=== PATIENT | male | born 1980 | race Caucasian/White ===

== ENCOUNTER 2018-03-03 11:09 | Emergency (ER) | payer MEDICARE, MEDICAID, SELFPAY ==
[2018-03-03 11:14] VITALS: BP 147/88; PULSE 98; RESP 16; TEMP 36; O2SAT 97
--- NOTE | 2018-03-03 11:15 | ED.GENADUL ---
Disposition Clinical Impression: Cellulitis of both feet Disposition: HOME Condition: Good Instructions: Cellulitis (ED) Additional Instructions: Soap and water cleanse of the feet once to twice daily, pat and then it air dry. Once dry wear shoes with cotton socks. Return to the development of fever, spreading redness, or any other acute concerns. No wearing of sandals for 5-7 days time until healed. Continue your regular medications Prescriptions: Cephalexin [Keflex] 500 mg PO TID #15 cap Medical Decision Making - Medical Decision Making 29-year-old male with beginnings of cellulitis on the bilateral feet primarily caused by rubbing of the strap sandals. We have contacted his case packer and sealer to assist in new footwear including socks and sneakers. I will place him on 5 days of oral Keflex to ensure resolution. He is stable for outpatient management History of Present Illness - General Chief complaint: Cellulitis Stated complaint: INFECTION Time Seen by Provider: 03/03/18 11:15 Source: patient, RN notes reviewed Mode of arrival: ambulatory Limitations: no limitations - History of Present Illness Initial comments: Bilateral foot pain: 29-year-old male who presents from home with 2 days of the gradual onset of mild, dull, achy discomfort in his feet underneath the straps of his flip-flop sandals. Today with erythema that extended to the arch of the left foot and is present bilaterally at the proximal great toes. No fever or chills. He has had no systemic illness. He recently moved in with his girlfriend. He continues to see his case packer and sealer. - Related Data BusPIRone [Buspar] 15 mg PO BID 09/24/16 Melatonin 3 mg PO HS 09/24/16 Methylphenidate [Ritalin] 20 mg PO DAILY 09/24/16 Risperidone [Risperdal] 3 mg PO BID 09/24/16 Citalopram [CeleXA] 10 mg PO DAILY 02/09/18 Oxcarbazepine [Trileptal] 900 mcg PO BID 02/09/18 Diclofenac Sodium [Voltaren 0.1% ophth tennille] 1 ml OP BID #1 btl 02/23/18 Promethazine [Phenergan] 12.5 mg PO Q6H PRN PRN #4 tab 02/24/18 Cephalexin [Keflex] 500 mg PO TID #15 cap 03/03/18 Allergies Allergy/AdvReac Type Severity Reaction Status Date / Time carbamazepine [From Tegretol] Allergy Unverified 02/24/18 14:56 guanfacine [From Tenex] Allergy Unverified 02/24/18 14:56 lithium Allergy Unverified 02/24/18 14:56 Review of Systems Other: 6 systems reviewed, otherwise negative Past Medical History - Past Medical History Medical history: hyperlipidemia, seizures, asthma, COPD Obstructive sleep apnea Surgical history: non-contributory - Social History Alcohol use: none Drug use: none General Exam - General Limitations: no limitations General appearance: alert, in no apparent distress - Head Head exam: Present: atraumatic, normocephalic - Eye Eye exam: Present: PERRL, EOMI - Extremities Exam Extremities exam: Present: normal capillary refill, other (Bilateral feet with erythema of the proximal great toe and on the left to the dorsum of the foot. Tender to palpation. No fluctuance. 2+ DP bilaterally. No stiff edema. No abnormal findings of the proximal leg) - Neurological Exam Neurological exam: Present: alert, oriented X3 - Psychiatric Psychiatric exam: Present: normal affect, normal mood - Skin Skin exam: Present: warm, dry, intact
--- NOTE | 2018-03-03 11:27 | NUR.NOTE ---
Nursing Note: spoke to his briefcase sewer and they will find him a pair of shoes and socks. will bring them to him tonight.
== END 2018-03-03 11:29 | disposition home or self-care (01) ==
PROVIDERS: Emergency Provider Emergency Medicine; PCP Internal Medicine
DX: L03.115 Cellulitis of right lower limb (principal); L03.116 Cellulitis of left lower limb; J44.9 Chronic obstructive pulmonary disease, unspecified
CPT/HCPCS: 99283 ×2

== ENCOUNTER 2018-03-14 19:31 | Emergency (ER) | payer MEDICARE, MEDICAID, SELFPAY ==
[2018-03-14 19:35] VITALS: BP 128/83; PULSE 100; RESP 20; TEMP 37; O2SAT 98
--- NOTE | 2018-03-14 19:59 | DI.RPTCT_ITS ---
SYMPTOM/DIAGNOSIS: SEIZURE, H/O ? FALL NONCONTRAST HEAD CT: No intracranial hemorrhage, mass or infarct is seen. The ventricles are normal in size. There has been no change from the previous exam. There is ethmoid sinus disease. IMPRESSION: No acute abnormality
--- NOTE | 2018-03-14 19:59 | ED.GENADUL ---
Disposition Clinical Impression: Breakthrough seizure Disposition: HOME Condition: Good Instructions: Recurrent Seizures in Adults (ED) Additional Instructions: Continue all regular medications. Home to rest this evening. Return to the emergency department for any acute concerns. Medical Decision Making - Lab Data Laboratory Results - last 24 hr 03/14/18 03/14/18 20:08 20:08 WBC 8.05 RBC 4.87 Hgb 14.8 Hct 42.3 MCV 86.9 MCH 30.4 MCHC 35.0 RDW 13.3 Plt Count 234 MPV 11.0 Immature Gran % 0.4 Neutrophils % 66.8 Lymphocytes % 22.4 Monocytes % 5.7 Eosinophils % 4.2 Basophils % 0.5 Absolute Neutrophils 5.38 Absolute Lymphocytes 1.80 Absolute Monocytes 0.46 Absolute Eosinophils 0.34 Absolute Basophils 0.04 Sodium 138 Potassium 3.8 Chloride 101 Carbon Dioxide 29.9 Anion Gap 7.1 BUN 11 Creatinine 0.95 Estimated GFR/1.73 m2 >= 60.00 Glucose 99 Calcium 8.7 Total Bilirubin 0.2 AST 14 L ALT 19 Alkaline Phosphatase 125 H Total Protein 7.0 Albumin 4.0 Results reviewed for labs ordered during visit: Yes - Radiology Data Radiology results: report reviewed, image reviewed - Medical Decision Making 29-year-old male presents from his home with computer game designer after waking up on the floor, question whether he had a seizure and struck his head. He has a mild posterior headache but is otherwise well. His neurologic exam is unremarkable. His vital signs are stable. Offered analgesia which he declined. Given fluids by mouth. Given question of traumatic injury as well as possible seizure, differential diagnosis includes skull fracture, intracranial bleeding, breakthrough seizure. Do not feel that he exhibits signs or symptoms of meningitis or stroke. Patient referred for CT scan of the head and laboratory testing. Laboratories reviewed and unremarkable. Patient remains without complaint. CT images: No acute intracranial findings. See formal report. He stable and improved, appropriate discharged home. He will follow-up with computer game designer. History of Present Illness - General Chief complaint: Seizure Stated complaint: SEIZURE? Time Seen by Provider: 03/14/18 19:48 Source: patient, RN notes reviewed Mode of arrival: ambulatory Limitations: no limitations - History of Present Illness Initial comments: 29-year-old male presents with computer game designer. He has a history of seizure. He states that he woke up on the floor was new apartment where he has been residing for 2 days. He now has a dull, achy, posterior headache that he questions came from a fall or seizure at home per does not of neck pain, motor weakness of the upper extremity, numbness or tingling. He has otherwise been well. Has not had recent fever or chills. He states that the posterior headache came on gradually, has somewhat improved, is not associated with changes to vision, focal weakness, vomiting. - Related Data Melatonin 3 mg PO HS 09/24/16 Methylphenidate [Ritalin] 20 mg PO DAILY 09/24/16 Risperidone [Risperdal] 3 mg PO BID 09/24/16 Citalopram [CeleXA] 10 mg PO DAILY 02/09/18 Oxcarbazepine [Trileptal] 900 mcg PO BID 02/09/18 BusPIRone [Buspar] 15 mg PO BID 03/14/18 Allergies Allergy/AdvReac Type Severity Reaction Status Date / Time carbamazepine [From Tegretol] Allergy Unverified 03/14/18 19:38 guanfacine [From Tenex] Allergy Unverified 03/14/18 19:38 lithium Allergy Unverified 03/14/18 19:38 Review of Systems Other: 8 systems reviewed, otherwise negative Past Medical History - Past Medical History Medical history: hyperlipidemia, seizures, asthma, COPD Obstructive sleep apnea Surgical history: non-contributory - Social History Alcohol use: none Drug use: none General Exam - General Limitations: no limitations General appearance: alert, in no apparent distress - Head Head exam: Present: atraumatic, normocephalic - Eye Eye exam: Present: PERRL, EOMI - ENT ENT exam: Present: normal exam, normal external ear exam - Neck Neck exam: Present: normal inspection, full ROM. Absent: tenderness - Respiratory Respiratory exam: Present: normal lung sounds bilaterally. Absent: respiratory distress - Cardiovascular Cardiovascular Exam: Present: regular rate, normal rhythm, other (Pulse approximately 80-90 at rest) - GI/Abdominal GI/Abdominal exam: Present: soft. Absent: distended, tenderness - Extremities Exam Extremities exam: Present: normal inspection, full ROM - Neurological Exam Neurological exam: Present: alert, oriented X3, CN II-XII intact, normal gait, other. Absent: motor sensory deficit - Psychiatric Psychiatric exam: Present: normal affect, normal mood - Skin Skin exam: Present: warm, dry, intact Course Vital Signs - 24 hr 03/14/18 19:35 Temperature 37 C Pulse 100 H Respiratory 20 Rate Blood Pressure 128/83 Pulse Oximetry 98
--- NOTE | 2018-03-14 20:02 | ED.GENADUL_ITS ---
Disposition Clinical Impression: Breakthrough seizure Disposition: HOME Condition: Good Instructions: Recurrent Seizures in Adults (ED) Additional Instructions: Continue all regular medications. Home to rest this evening. Return to the emergency department for any acute concerns. Medical Decision Making - Lab Data Laboratory Results - last 24 hr 03/14/18 03/14/18 20:08 20:08 WBC 8.05 RBC 4.87 Hgb 14.8 Hct 42.3 MCV 86.9 MCH 30.4 MCHC 35.0 RDW 13.3 Plt Count 234 MPV 11.0 Immature Gran % 0.4 Neutrophils % 66.8 Lymphocytes % 22.4 Monocytes % 5.7 Eosinophils % 4.2 Basophils % 0.5 Absolute Neutrophils 5.38 Absolute Lymphocytes 1.80 Absolute Monocytes 0.46 Absolute Eosinophils 0.34 Absolute Basophils 0.04 Sodium 138 Potassium 3.8 Chloride 101 Carbon Dioxide 29.9 Anion Gap 7.1 BUN 11 Creatinine 0.95 Estimated GFR/1.73 m2 >= 60.00 Glucose 99 Calcium 8.7 Total Bilirubin 0.2 AST 14 L ALT 19 Alkaline Phosphatase 125 H Total Protein 7.0 Albumin 4.0 Results reviewed for labs ordered during visit: Yes - Radiology Data Radiology results: report reviewed, image reviewed - Medical Decision Making 29-year-old male presents from his home with loss prevention supervisor after waking up on the floor, question whether he had a seizure and struck his head. He has a mild posterior headache but is otherwise well. His neurologic exam is unremarkable. His vital signs are stable. Offered analgesia which he declined. Given fluids by mouth. Given question of traumatic injury as well as possible seizure , differential diagnosis includes skull fracture, intracranial bleeding, breakthrough seizure. Do not feel that he exhibits signs or symptoms of meningitis or stroke. Patient referred for CT scan of the head and laboratory testing. Laboratories reviewed and unremarkable. Patient remains without complaint. CT images: No acute intracranial findings. See formal report. He stable and improved, appropriate discharged home. He will follow-up with loss prevention supervisor. History of Present Illness - General Chief complaint: Seizure Stated complaint: SEIZURE? Time Seen by Provider: 03/14/18 19:48 Source: patient, RN notes reviewed Mode of arrival: ambulatory Limitations: no limitations - History of Present Illness Initial comments: 29-year-old male presents with loss prevention supervisor. He has a history of seizure. He states that he woke up on the floor was new apartment where he has been residing for 2 days. He now has a dull, achy, posterior headache that he questions came from a fall or seizure at home per does not of neck pain, motor weakness of the upper extremity, numbness or tingling. He has otherwise been well. Has not had recent fever or chills. He states that the posterior headache came on gradually, has somewhat improved, is not associated with changes to vision, focal weakness, vomiting. - Related Data Melatonin 3 mg PO HS 09/24/16 Methylphenidate [Ritalin] 20 mg PO DAILY 09/24/16 Risperidone [Risperdal] 3 mg PO BID 09/24/16 Citalopram [CeleXA] 10 mg PO DAILY 02/09/18 Oxcarbazepine [Trileptal] 900 mcg PO BID 02/09/18 BusPIRone [Buspar] 15 mg PO BID 03/14/18 Allergies Allergy/AdvReac Type Severity Reaction Status Date / Time carbamazepine [From Tegretol] Allergy Unverified 03/14/18 19:38 guanfacine [From Tenex] Allergy Unverified 03/14/18 19:38 lithium Allergy Unverified 03/14/18 19:38 Review of Systems Other: 8 systems reviewed, otherwise negative Past Medical History - Past Medical History Medical history: hyperlipidemia, seizures, asthma, COPD Obstructive sleep apnea Surgical history: non-contributory - Social History Alcohol use: none Drug use: none General Exam - General Limitations: no limitations General appearance: alert, in no apparent distress - Head Head exam: Present: atraumatic, normocephalic - Eye Eye exam: Present: PERRL, EOMI - ENT ENT exam: Present: normal exam, normal external ear exam - Neck Neck exam: Present: normal inspection, full ROM. Absent: tenderness - Respiratory Respiratory exam: Present: normal lung sounds bilaterally. Absent: respiratory distress - Cardiovascular Cardiovascular Exam: Present: regular rate, normal rhythm, other (Pulse approximately 80-90 at rest) - GI/Abdominal GI/Abdominal exam: Present: soft. Absent: distended, tenderness - Extremities Exam Extremities exam: Present: normal inspection, full ROM - Neurological Exam Neurological exam: Present: alert, oriented X3, CN II-XII intact, normal gait, other. Absent: motor sensory deficit - Psychiatric Psychiatric exam: Present: normal affect, normal mood - Skin Skin exam: Present: warm, dry, intact Course Vital Signs - 24 hr 03/14/18 19:35 Temperature 37 C Pulse 100 H Respiratory 20 Rate Blood Pressure 128/83 Pulse Oximetry 98
[2018-03-14 20:19] LABS: Abs Immature Grans 0.03 k/cumm (0.0-0.09); Absolute Basophil Count 0.04 k/cumm (0.0-0.2); Absolute Eosinophil Count 0.34 k/cumm (0.0-0.7); Absolute Monocyte Count 0.46 k/cumm (0.11-0.7); Absolute Neutrophil Count 5.38 k/cumm (1.2-6.7); Basophils % 0.5; Eosinophils % 4.2; HCT 42.3 % (40.0-50.0); HGB 14.8 g/dL (13.5-17.5); Immature Grans % 0.4; Lymphocytes % 22.4; Mean Corpuscular Hemoglobin 30.4 pg (27.0-33.0); Mean Corpuscular Volume 86.9 fL (80-95); Monocytes % 5.7; Neutrophils % 66.8; Platelet Count 234 x1000/uL (130-400); RBC 4.87 m/cumm (4.50-6.00); RBC Distribution Width 13.3 % (11.8-14.1); White Blood Cell Count 8.05 k/cumm (4.4-10.8)
[2018-03-14 20:33] LABS: ALT 19 U/L (12-78); AST 14 U/L (15-37); Alkaline Phosphatase 125 U/L (46-116); Anion Gap 7.1 mmol/L (3-11); BUN 11 mg/dL (7-18); Bilirubin, Total 0.2 mg/dL (0.2-1.0); CO2 29.9 mmol/L (21.0-32.0); CREATININE 0.95 mg/dL (0.70-1.30); Calcium 8.7 mg/dL (8.5-10.1); Chloride 101 mmol/L (98-107); Glucose 99 mg/dL (70-100); Potassium 3.8 mmol/L (3.5-5.1); Sodium 138 mmol/L (136-145)
--- NOTE | 2018-03-14 21:14 | DI.VRAD_ITS ---
EXAM: CT Head Without Intravenous Contrast CLINICAL HISTORY: 37 years old, male; Signs and symptoms; Other: Seizure; Patient HX: Seizure, HX of; Additional info: ? Fall TECHNIQUE: Axial computed tomography images of the head/brain without intravenous contrast. Coronal and sagittal reformatted images were created and reviewed. COMPARISON: CT - HEAD AND CSPINE W/O CONTRAST 2017-12-20 19:23 FINDINGS: Brain: No focal pathology. No hemorrhage. No significant white matter disease. No edema. Ventricles: No focal pathology. No ventriculomegaly. Bones/joints: No focal pathology. No acute fracture. Soft tissues: Unremarkable. Sinuses: Ethmoid and right frontal sinus disease. Mastoid air cells: Unremarkable as visualized. No mastoid effusion. Orbits: Coarse calcification or other band like material associated with the posterior aspect of the left globe is partially seen, could be posttraumatic or postsurgical. IMPRESSION: 1. No acute intracranial findings. 2. Ethmoid and right frontal sinus disease. Dictated and Authenticated by: Emili Juarez MD. Ordering:RACHEL TOHMPSON MD
[2018-03-15 00:50] VITALS: BP 128/83; PULSE 100; RESP 20; TEMP 37; O2SAT 98
--- NOTE | 2018-03-16 12:33 | NUR.NOTE ---
Nursing Note: Patient called asking if he could play soccer tonight. Spoke with MARTHA Barnes who stated that we do not clear patient's to play sports in the ED. The patient would need to follow up with his primary physician. Patient was told this and agreed. Milana Parker.
== END 2018-03-14 21:20 | disposition home or self-care (01) ==
PROVIDERS: Emergency Provider Emergency Medicine; PCP Internal Medicine
DX: G40.909 Epilepsy, unspecified, not intractable, without status epilepticus (principal); J44.9 Chronic obstructive pulmonary disease, unspecified
CPT/HCPCS: 70450; 99284 ×2; 36415; 80053; 85025

== ENCOUNTER 2018-08-14 20:06 | Emergency (ER) | payer MEDICARE, MEDICAID, SELFPAY ==
[2018-08-14 20:16] VITALS: BP 129/72; PULSE 82; RESP 16; TEMP 37; O2SAT 94
--- NOTE | 2018-08-14 21:32 | DI.CT_ITS ---
SYMPTOM/DIAGNOSIS: BACK PAIN, ABSENT SENSATION TO LT FOOT LUMBAR SPINE CT; Multiple contiguous axial images of the lumbar spine were obtained. Sagittal and coronal reformatted images were evaluated on the Siemens work station. There is normal alignment of the lumbar spine. No acute fractures or subluxations are seen. At L 5-S 1, there is a broad based disc bulge slightly eccentric to the left. No significant central spinal canal stenosis is seen. There are degenerative changes of the facet joints and mild narrowing of the left neural foramen is noted. At L 4-5, there is a diffuse disc bulge. No significant central spinal canal or neural foraminal stenosis is present. The remaining disc levels show no focal disc herniation, central spinal canal or neural foraminal stenosis. IMPRESSION: 1. No acute fracture or subluxation in the lumbar spine. 2. Broad based disc bulge at L 5-S 1, slightly more pronounced on the left. MRI should be considered for further evaluation. 3. Disc herniation at L 4-5. PELVIC CT: CT scan of the pelvis was performed without intravenous contrast material. Sagittal and coronal reformatted images were evaluated on the Siemens work station. The bowel shows no acute abnormality. The urinary bladder and reproductive organs are unremarkable. No pelvic adenopathy, ascites or pneumoperitoneum is present. The bones are intact and normally mineralized. No acute fracture, dislocation, lytic or sclerotic lesion is seen. The soft tissues are unremarkable. IMPRESSION: Negative CT scan of the pelvis.
[2018-08-14] MEDS: Acetaminophen 500 MG TAB 1000 MG PO (21:39)
[2018-08-14] MEDS: Lidocaine 5% Patch 1 PATCH TP (21:39)
--- NOTE | 2018-08-14 21:48 | NUR.NOTE ---
patient refused motrin Nursing Note:
--- NOTE | 2018-08-14 22:32 | DI.VRAD_ITS ---
EXAM: CT Pelvis Without Contrast, Skeletal EXAM DATE/TIME: 08/14/2018 9:35 PM CLINICAL HISTORY: 37 years old, male; Pain; Other: Back pain TECHNIQUE: Axial computed tomography images of the pelvis without intravenous contrast. Exam focused on the skeletal structures. All CT scans at this facility use at least one of these dose optimization techniques: automated exposure control; mA and/or kV adjustment per patient size (includes targeted exams where dose is matched to clinical indication); or iterative reconstruction. Coronal and sagittal reformatted images were created and reviewed. COMPARISON: CR LUMBAR SPINE COMPLETE 08/23/2017 4:59 PM FINDINGS: Bones/joints: There is no evidence of acute fracture. There is no evidence of malalignment or dislocation. Lumbar spine-refer to the CT report Soft tissues: Unremarkable. IMPRESSION: There is no evidence of acute fracture. Dictated and Authenticated by: Deidre Da Silva MD. Ordering:JONA Puente MD
--- NOTE | 2018-08-14 22:38 | DI.VRAD_ITS ---
EXAM: CT Lumbar Spine Without Contrast EXAM DATE/TIME: 08/14/2018 9:35 PM CLINICAL HISTORY: 37 years old, male; Pain; Low back pain TECHNIQUE: Axial computed tomography images of the lumbar spine without intravenous contrast. All CT scans at this facility use at least one of these dose optimization techniques: automated exposure control; mA and/or kV adjustment per patient size (includes targeted exams where dose is matched to clinical indication); or iterative reconstruction. COMPARISON: CR LUMBAR SPINE COMPLETE 08/23/2017 4:59 PM FINDINGS: Vertebrae: No acute fracture. Normal alignment. Discs/Spinal canal/Neural foramina: Broad-based disc bulge at L5/S1 is more pronounced on the left (3:77). Central disc herniation and to the left at L4/L5 (3:64). Soft tissues: Unremarkable. IMPRESSION: 1. Broad-based disc bulge at L5/S1 is more pronounced on the left (3:77). Recommend MRI for further evaluation 2. Central disc herniation and to the left at L4/L5 (3:64). Recommend MRI for further evaluation Dictated and Authenticated by: Deidre Da Silva MD. Ordering:JONA Puente MD
--- NOTE | 2018-08-14 23:15 | ED.GENADUL_ITS ---
Discharge Plan Disposition Patient Disposition: HOME Condition: Good Discharge Details Chief Complaint: Nk/Back Pain Clinical Impression: Radiculopathy Primary Care Provider: Oscar Simon ED Provider: Kwame Tran Home Meds and New Rx's Prescriptions: New prednisone 50 MG tablet 50 mg PO DAILY Qty: 5 RF: 0 lidocaine [Lidoderm] 1 PATCH patch 1 patch Topical Q24H Qty: 4 RF: 0 No Action methylphenidate HCl [Ritalin] 20 MG tablet 20 mg PO DAILY RF: 0 melatonin 3 MG tablet 3 mg PO HS RF: 0 risperidone [Risperdal] 3 MG tablet 3 mg PO BID RF: 0 oxcarbazepine [Trileptal] 600 MG tablet 900 mcg PO BID RF: 0 citalopram 10 MG tablet 20 mg PO DAILY RF: 0 buspirone 15 MG tablet 15 mg PO BID RF: 0 Discharge Instructions Instructions: Lumbar Radiculopathy (ED) Additional Instructions: Please follow-up with the [facility] spine center. You will be contacted for your referral appointment time. He will also be contacted for scheduling of your MRI. Please do not miss this appointment. Do not lift anything greater than 5 pounds for the next 2-3 weeks. If you notice any worsening of your symptoms, or any new symptoms such as numbness or tingling in your groin, bowel or bladder incontinence, weakness in your legs, vomiting, diarrhea, fever, chills, shortness of breath, chest pain, numbness, weakness, or fainting , please return immediately to the emergency department for reevaluation. Please follow up with your primary care provider as soon as possible for reassessment and reevaluation. As always, it was a pleasure participating in your medical care today. Referrals: Oscar Simon MD [Primary Care Provider] - Discharge Data Discharge Date/Time-TO BE ENTERED AT DEPARTURE: 08/14/18 23:27 Medical Decision Making This is a 37-year-old male who is developmentally delayed who presents today with complaint of left lower back pain for the last 2 days. It began 2 days ago without any trauma or significant heavy lifting. He has a known history of bulging disks L4-L5 and S1. Physical exam demonstrates no concerning red flags of cauda equina syndrome and a exam clinically inconsistent with this. He has no saddle anesthesia no decrease in reflexes, no decrease in strength. No bowel or bladder incontinence. Bladder scan shows 0 mL's in his post void bladder scan as well as excellent rectal tone and good perirectal sensation. The patient does have some decrease in sensation on the medial anterior and posterior aspect of his leg distal to the knee and on the foot, however he does demonstrate excellent dorsiflexion of the great toe, good plantar and d orsiflexion of the foot, good Achilles reflex and good patellar reflex. CT scan was ordered and shows broad-based disc bulge at L5-S1 that is more pronounced on the left, as well as a central disc herniation and to the left for L4 and L5. No other acute process or fracture. With a clinical exam inconsistent with cauda equina syndrome or central cord compression syndrome, and imaging and physical exam consistent with radiculopathy secondary to his disc bulge, I do feel that he can be safely discharged home. I had a long discussion with the patient and his guardian regarding red flags which to return as well as signs and symptoms concerning for cauda equina syndrome. We will set up for an outpatient MRI, set up referral to the [facility] spine center, and start the patient on steroids and Lidoderm patch. I have extensively reviewed the treatment plan and discharge instructions with the patient and their family. I have addressed all patient concerns at this time. The patient and family was made aware of what symptoms to monitor for that would warrant a return to the emergency department. Discussed the plan with the patient and family, they demonstrate verbal understanding and agreement with our assessment and plan at this time. FINDINGS: Bones/joints: There is no evidence of acute fracture. There is no evidence of malalignment or dislocation. Lumbar spine-refer to the CT report Soft tissues: Unremarkable. IMPRESSION: There is no evidence of acute fracture. Dictated and Authenticated by: Deidre Da Silva MD. IMPRESSION: 1. Broad-based disc bulge at L5/S1 is more pronounced on the left (3:77). Recommend MRI for further evaluation 2. Central disc herniation and to the left at L4/L5 (3:64). Recommend MRI for further evaluation Dictated and Authenticated by: Deidre Da Silva MD. HPI General Date/Time Provider Initiated Documentation: 08/14/18 21:20 . HPI Narrative: This is a pleasant 37-year-old male with a past medical history of COPD, seizures, traumatic brain injury, PTSD, factitious disorder, somatization disorder, and retinal detachment in his left eye, and known radiculopathy in his lumbar spine. He presents today for eval of left-sided back pain. Patient states that 2 days ago he began having left-sided back pain, as well as tingling in his left leg and toes. He denies lifting any heavy objects, but does admit to shoveling notable snow over the last few days. He denies any bowel or bladder incontinence, he denies any saddle anesthesia. He denies any fall, trauma, fever, chills, or IV drug use. He has no other complaints at this time. Pain is made worse with movement, and sitting upright. Improved by nothing. He denies any recent surgeries, or pertinent family history. The patient does have developmental delay and he is here with his radiologic tech. Related Data Home Medications Medication Instructions Recorded Confirmed melatonin 3 mg PO HS 09/24/16 08/14/18 methylphenidate HCl [Ritalin] 20 mg PO DAILY 09/24/16 08/14/18 risperidone [Risperdal] 3 mg PO BID 09/24/16 08/14/18 citalopram 20 mg PO DAILY 02/09/18 08/14/18 oxcarbazepine [Trileptal] 900 mcg PO BID 02/09/18 08/14/18 buspirone 15 mg PO BID 03/14/18 08/14/18 lidocaine [Lidoderm] 1 patch TOPICAL Q24H #4 patch 08/14/18 prednisone 50 mg PO DAILY #5 tab 08/14/18 Previous Rx's Medication Instructions Recorded lidocaine [Lidoderm] 1 patch TOPICAL Q24H #4 patch 08/14/18 prednisone 50 mg PO DAILY #5 tab 08/14/18 Allergies Allergy/AdvReac Type Severity Reaction Status Date / Time carbamazepine [From Tegretol] Allergy Unverified 08/14/18 20:16 guanfacine [From Tenex] Allergy Unverified 08/14/18 20:16 lithium Allergy Unverified 08/14/18 20:16 General Stated Complaint: Nk/Back Pain ANTONETTE: 4 Review of Systems Review of Systems All systems reviewed & are unremarkable except as noted in HPI and below PFSH Social History Smoking/Tobacco Use Status: Current-Occasional Exam Narrative Exam Narrative: 1.Const: Well-nourished, Well-developed, appearing stated age 2.Eyes: PERRL, no conjunctival injection, and symmetrical lids. 3.ENT: Atraumatic external nose and ears. Moist MM. Neck: Symmetric, trachea midline, No thyromegaly. 4.CVS: +S1/S2, No murmurs or gallops. Peripheral pulses 2+ and equal in all extremities. Brisk capillary refill in all extremities. 5.RESP: Unlabored respiratory effort. Clear to auscultation bilaterally. No wheezes rales or rhonchi 6.GI: Soft, Nontender/Nondistended, No hepatosplenomegaly. No guarding or rebound. 7.MSK: Normocephalic/Atraumatic, Extremities w/o deformity or ttp No cyanosis or clubbing, Normal movement of all extremities. No midline tenderness to palpation over the CTLS spine. Notable left-sided paraspinal tenderness. normal ROM in flexion, extension, side bend, and rotation. Patient has +5 out of 5 strength in the lower extremities in dorsiflexion and plantarflexion, knee flexion and extension, hip flexion and extension. There is +2 over 2 dorsalis pedis pulses bilaterally. Rectal exam demonstrates normal rectal tone, good perirectal sensation. reflexes are +2 over 4 in the patellar reflex bilaterally. +5 out of 5 strength in the medial, ulnar, radial nerve distribution bilaterally in the hands as well as intact light touch sensation to these dermatomes on the hands. Right lower extremity sensation was normal. No abnormalities. Good two-point discrimination is present on the right lower extremity. Left lower extremity does demonstrate normal sensation proximal to the knee, distal to the knee he demonstrates slight decrease in sensation over the medial aspect posterior and anterior aspect of the calf. The foot demonstrates intact sensation on the lateral component but decreased sensation over the toes 1 through 4, the medial aspect and the plantar aspect of the foot. Two-point discrimination is decreased on the foot and the left. Patient does demonstrate excellent dorsiflexion of the great toe, plantar and dorsiflexion of the foot, +2 please reflex on the left. +2 dorsalis pedis and posterior tibial pulse, as well as brisk capillary refill bilaterally. 8.Skin: Warm, Dry. No rashes or lesions. 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 Please see musculoskeletal for skin and neuro exam of the lower extremities. 10.Psych: (AAO) x3. Appropriate mood and affect Course Vital Signs Temperature 37.0 C 08/14/18 20:16 Pulse 82 08/14/18 20:16 Respiratory Rate 16 08/14/18 20:16 Blood Pressure 129/72 08/14/18 20:16 Pulse Oximetry 94 L 08/14/18 20:16 Temperature 37.0 C 08/14/18 20:16 Temperature Source Temporal Artery Scan 08/14/18 20:16 Pulse 82 08/14/18 20:16 Respiratory Rate 16 08/14/18 20:16 Respiratory Effort 08/14/18 20:16 Blood Pressure 129/72 08/14/18 20:16 Blood Pressure Position Sitting 08/14/18 20:16 Pulse Oximetry 94 L 08/14/18 20:16 Oxygen Delivery Method Room Air 08/14/18 20:16 Oxygen Flow Rate 0 08/14/18 20:16 Pain Level 9 08/14/18 20:19
--- NOTE | 2018-08-17 08:41 | PDOC.ERCMPRO ---
Care Management Progress Note 08/17-Dr. Tran requested assistance with a f/u within one week at [facility] for bulging disc L5,L4, S1. PCP is Dr. Simon at [facility]. Referral faxed to [facility] requesting they schedule appt with Spine Center.
--- NOTE | 2018-08-17 08:59 | CMPROGNOTE_ITS ---
Care Management Progress Note 08/17-Dr. Tran requested assistance with a f/u within one week at [facility] for bulging disc L5,L4, S1. PCP is Dr. Simon at [facility]. Referral faxed to [facility] requesting they schedule appt with Spine Center.
--- NOTE | 2018-08-17 09:00 | NUR.NOTE ---
Nursing Note: [facility] called asking about medication for the patient for an MRI. The ED sent an outpatient order this weekend. Per Dr. Rosa Turcios the patient should go through the PCP or can come to the ED for re-evaluation for the medication. [facility] was notified of this. Milana Parker.
== END 2018-08-14 23:27 | disposition home or self-care (01) ==
PROVIDERS: Emergency Provider Student in an Organized Health Care Education/Training Program; PCP Internal Medicine
DX: M54.16 Radiculopathy, lumbar region (principal); R20.2 Paresthesia of skin; J44.9 Chronic obstructive pulmonary disease, unspecified; F17.210 Nicotine dependence, cigarettes, uncomplicated
CPT/HCPCS: 99284; 72131; 72192; 99285

== ENCOUNTER 2018-08-21 00:18 | Outpatient (CLI) | payer MEDICARE, MEDICAID, SELFPAY ==
--- NOTE | 2018-08-21 10:51 | DI.MRI_ITS ---
SYMPTOMS/DIAGNOSIS: L4, L5, S1 DISC BULGE WITH RADICULOPATHY SYMPTOMS, NUMBNESS OF LEFT LEG, S/P INJURY IN 2014 MRI OF THE LUMBAR SPINE: Routine examination was performed. Comparison CT scan is 08/14/18. At L5-S1, there is disc desiccation. There is a left paracentral disc herniation, which does appear to compress upon the left S1 nerve root. Mild narrowing of the left neural foramen is also noted. There are degenerative changes of the facets. At L4-L5, there is disc desiccation. There is a diffuse disc bulge. There is an annular tear present. Small central disc herniation is present. There are degenerative changes of the facets. There is mild narrowing of the central spinal canal noted. Mild bilateral neural foraminal narrowing is seen, left greater than right. At L3-L4, there is disc desiccation. There is a diffuse disc bulge. Degenerative changes of the facets are seen. There is mild narrowing of the central spinal canal. There is mild narrowing of the left neural foramen. L2-L3 and L1-L2 show no focal disc herniation, central spinal canal or neural foraminal stenosis. The conus medullaris has a normal appearance and location. IMPRESSION: 1. Left paracentral disc herniation at L5-S1 compressing the left S1 nerve root. 2. Multilevel degenerative changes in the lumbar spine resulting in central spinal canal and left neural foraminal stenosis as described above.
== END 2018-08-21 00:38 ==
PROVIDERS: PCP Internal Medicine; Visit Provider Student in an Organized Health Care Education/Training Program
DX: M51.17 Intervertebral disc disorders with radiculopathy, lumbosacral region (principal); M47.27 Other spondylosis with radiculopathy, lumbosacral region; R20.0 Anesthesia of skin
CPT/HCPCS: 72148

== ENCOUNTER 2018-10-22 13:52 | Outpatient (REF) | payer MEDICARE, MEDICAID, SELFPAY ==
[2018-10-22 21:54] LABS: Abs Immature Grans 0.02 k/cumm (0.0-0.09); Absolute Basophil Count 0.02 k/cumm (0.0-0.2); Absolute Lymphocyte Count 1.22 k/cumm (1.2-3.4); Absolute Monocyte Count 0.35 k/cumm (0.11-0.7); Absolute Neutrophil Count 3.59 k/cumm (1.2-6.7); Basophils % 0.4; Eosinophils % 3.7; HCT 44.5 % (40.0-50.0); Immature Grans % 0.4; Lymphocytes % 22.6; Mean Corp. HGB Concentration 33.7 g/dL (32.0-36.0); Mean Corpuscular Hemoglobin 29.3 pg (27.0-33.0); Mean Corpuscular Volume 86.9 fL (80-95); Mean Platelet Volume 11.3 fL (8.0-11.0); Monocytes % 6.5; Neutrophils % 66.4; Platelet Count 238 x1000/uL (130-400); RBC 5.12 m/cumm (4.50-6.00); RBC Distribution Width 13.8 % (11.8-14.1)
[2018-10-22 22:21] LABS: ALT 23 U/L (12-78); AST 16 U/L (15-37); Albumin 4.6 g/dL (3.4-5.0); Alkaline Phosphatase 126 U/L (46-116); Amylase 49 U/L (25-115); BUN 15 mg/dL (7-18); Bilirubin, Total 0.2 mg/dL (0.2-1.0); CREATININE 0.86 mg/dL (0.70-1.30); Calcium 8.9 mg/dL (8.5-10.1); Chloride 100 mmol/L (98-107); Glucose 90 mg/dL (70-100); Lipase 90 U/L (73-393); Potassium 4.2 mmol/L (3.5-5.1); Sodium 138 mmol/L (136-145); TSH (W/Ref FT4) 1.96 uIU/mL (0.358-3.74); Total Protein 7.4 g/dL (6.4-8.2)
[2018-10-26 10:58] LABS: HBs Antibody, Qual Positive; HBs Antibody, Quant 284.6 mIU/mL; Hepatitis B Core Antibody Negative (NEGAT); Hepatitis B surface Ag Negative (NEGAT); Hepatitis C Ab w Rflx HCV PCR Negative (NEGAT)
== END 2018-10-22 14:12 ==
LOC: NCHCN 13:52
PROVIDERS: PCP Internal Medicine; Visit Provider Nurse Practitioner
DX: R19.7 Diarrhea, unspecified (principal); R10.32 Left lower quadrant pain; R10.11 Right upper quadrant pain; Z11.59 Encounter for screening for other viral diseases
CPT/HCPCS: 80053; 83690; 86704; 86706; 86803; 87340; 82150; 84443; 85025

== ENCOUNTER 2018-10-27 19:35 | Emergency (ER) | payer MEDICARE, MEDICAID, SELFPAY ==
[2018-10-27 19:39] VITALS: BP 121/73; PULSE 97; RESP 16; TEMP 36.6; O2SAT 96
--- NOTE | 2018-10-27 19:46 | ED.GENADUL_ITS ---
Discharge Plan Disposition Patient Disposition: HOME Condition: Stable Discharge Details Chief Complaint: Orthopedic Clinical Impression: Contusion of rib on right side Primary Care Provider: Oscar Simon ED Provider: Ricci Devine Home Meds and New Rx's Prescriptions: No Action methylphenidate HCl [Ritalin] 20 MG tablet 20 mg PO DAILY RF: 0 melatonin 3 MG tablet 3 mg PO HS RF: 0 risperidone [Risperdal] 3 MG tablet 3 mg PO BID RF: 0 oxcarbazepine [Trileptal] 600 MG tablet 900 mcg PO BID RF: 0 citalopram 10 MG tablet 20 mg PO DAILY RF: 0 buspirone 15 MG tablet 15 mg PO BID RF: 0 Discharge Instructions Instructions: Rib Contusion (ED) Additional Instructions: take 1000mg tylenol and 600mg ibuprofen every 6 hours for pain as needed if pain continues in a week see your primary care provider if you have severe worsening of pain, difficulty breathing or fevers return to the emergency department Medical Decision Making Pt states about an hour or so ago he was going into the bathroom and tripped and landed on his right chest, did not hit head or have loc. Has no headache or neck pain on rom. Denies any preceding symptoms to suggest presyncope or syncope so do not feel w/u for this indicated. HAs pain with palpation without palpable or visible deformity or swelling to rib 4 and 5 in right mid axillary line. No pain with deep breaths and clear lungs so doubt ptx. I advised the pt this islikely rib contusion but xray would eval for fx but he declined at this time. Will d/c home and return precautions given Differential Diagnosis rib contusion vs fx, ptx HPI General Mode of arrival: ambulatory . Date/Time Provider Initiated Documentation: 10/27/18 19:36 . Limitations to Documentation: no limitations . Information obtained by: patient . History of Present Illness 37 year old M presents to the emergency department with the chief complaint of right sided rib pain, described as moderate, Quality is described as aching, and is localized to the chest. Patient reports no radiation. Patient started experiencing this hour(s) (1) and it has been constant. No relieving factors improve symptom(s), No exacerbating factors reported . Patient notes no other symptoms.. Patient did receive the following treatments prior to arrival, none Related Data Home Medications Medication Instructions Recorded Confirmed melatonin 3 mg PO HS 09/24/16 10/27/18 methylphenidate HCl [Ritalin] 20 mg PO DAILY 09/24/16 10/27/18 risperidone [Risperdal] 3 mg PO BID 09/24/16 10/27/18 citalopram 20 mg PO DAILY 02/09/18 10/27/18 oxcarbazepine [Trileptal] 900 mcg PO BID 02/09/18 10/27/18 buspirone 15 mg PO BID 03/14/18 10/27/18 Allergies Allergy/AdvReac Type Severity Reaction Status Date / Time carbamazepine [From Tegretol] Allergy Unverified 10/27/18 19:39 guanfacine [From Tenex] Allergy Unverified 10/27/18 19:39 lithium Allergy Unverified 10/27/18 19:39 General Stated Complaint: Orthopedic ANTONETTE: 4 Review of Systems Review of Systems All systems reviewed & are unremarkable except as noted in HPI and below Constitutional Denies chills and Denies fever(s) Cardiovascular Denies chest pain and Denies dyspnea Respiratory Denies cough and Denies dyspnea Gastrointestinal Denies abdominal pain, Denies nausea and Denies vomiting Integumentary/Breasts Denies rash PFSH Social History Smoking/Tobacco Use Status: Current-Occasional Alcohol Intake: never Drug use: Never Do you feel safe at home: Yes Do you feel safe in your relationship?: Yes Exam Const General: no acute distress Orientation: alert HENMT Head: normal to inspection Ears: external ears normal General nose exam: external nose normal Mouth: moist mucous membranes Eyes General: appearance normal, both eyes and all related structures Neck Neck: normal visual inspection Chest Chest: No rash Resp Effort & Inspection: normal respiratory effort and able to speak in complete sentences Cardio Rate: regular rate Skin General skin exam: no rashes or lesions noted Neuro General: alert and oriented x3 Extrem General: normal to inspection Psych Mental Status: mental status grossly normal Course Vital Signs Temperature 36.6 C 10/27/18 19:39 Pulse 97 H 10/27/18 19:39 Respiratory Rate 16 10/27/18 19:39 Blood Pressure 121/73 10/27/18 19:39 Pulse Oximetry 96 10/27/18 19:39 Temperature 36.6 C 10/27/18 19:39 Temperature Source Temporal Artery Scan 10/27/18 19:39 Pulse 97 H 10/27/18 19:39 Respiratory Rate 16 10/27/18 19:39 Respiratory Effort 10/27/18 19:39 Blood Pressure 121/73 10/27/18 19:39 Blood Pressure Position Sitting 10/27/18 19:39 Pulse Oximetry 96 10/27/18 19:39 Oxygen Delivery Method Room Air 10/27/18 19:39 Oxygen Flow Rate 0 10/27/18 19:39 Pain Level 9 10/27/18 19:39
== END 2018-10-27 19:55 | disposition home or self-care (01) ==
LOC: ER 19:54
PROVIDERS: Emergency Provider Emergency Medicine; PCP Internal Medicine
DX: S20.211A Contusion of right front wall of thorax, initial encounter (principal); W01.0XXA Fall on same level from slipping, tripping and stumbling without subsequent striking against object, initial encounter
CPT/HCPCS: 99282

== ENCOUNTER 2018-11-04 14:02 | Emergency (ER) | payer MEDICARE, MEDICAID, SELFPAY ==
[2018-11-04] VITALS (7 sets, daily range): BP systolic 111–132; BP diastolic 64–81; PULSE 72–88; RESP 16; TEMP 36.6; O2SAT 97–99
--- NOTE | 2018-11-04 14:22 | DI.CT_ITS ---
SYMPTOMS/DIAGNOSIS: RIGHT LOWER QUADRANT PAIN, HEMATOCHEZIA CT SCAN OF THE ABDOMEN AND PELVIS: CT scan of the abdomen and pelvis was performed following the uneventful administration of intravenous contrast material. Comparison is 08/14/18. The visualized lung bases are clear. The liver is normal in size. The portal and superior mesenteric veins are patent. The gallbladder is negative. No biliary ductal dilatation is present. The pancreas, spleen and adrenal glands are unremarkable. The kidneys show normal and symmetric enhancement. No evidence of a solid renal mass or obstruction. The urinary bladder is intact. The reproductive organs are unremarkable. The abdominal aorta is of normal caliber. No aneurysmal dilatation is present. No significant abdominal or pelvic adenopathy, ascites or pneumoperitoneum is present. There is mild thickening of the wall of loops of small bowel in the left abdomen. There is also mild low attenuation wall thickening in the descending colon and sigmoid colon. There is a question of mild increased attenuation of the adjacent colonic fat. A mild enteritis/colitis cannot be excluded. No evidence of bowel obstruction is seen. No findings to suggest and acute appendicitis are present. There does appear to be a normal retrocecal appendix. Mild degenerative changes are seen in the spine. IMPRESSION: 1. Mild bowel wall thickening seen in several loops of small bowel in the left abdomen suspicious for a mild enteritis. 2. Mild wall thickening in a portion of the descending colon and proximal sigmoid colon. There is a question of mild increased attenuation in the surrounding colonic fat and a mild colitis cannot be excluded. The findings were discussed with Dr. Tolbert of the Emergency Department on the date of the examination.
--- NOTE | 2018-11-04 14:23 | W.ED.GENAD ---
Discharge Plan Disposition Patient Disposition: HOME Condition: Improving Discharge Details Chief Complaint: GI Bleed Clinical Impression: Enteritis Primary Care Provider: Penny Perez ED Provider: Paresh Tolbert Home Meds and New Rx's Prescriptions: Continued methylphenidate HCl [Ritalin] 20 MG tablet 20 mg PO DAILY RF: 0 melatonin 3 MG tablet 3 mg PO HS RF: 0 risperidone [Risperdal] 3 MG tablet 3 mg PO BID RF: 0 oxcarbazepine [Trileptal] 600 MG tablet 900 mcg PO BID RF: 0 citalopram 10 MG tablet 20 mg PO DAILY RF: 0 buspirone 15 MG tablet 15 mg PO BID RF: 0 Discharge Instructions Additional Instructions: We will refer you to general surgery clinic as he should have a follow-up evaluation. Return if you have recurrent and persistent bleeding by rectum. Your blood counts were normal and your CAT scan did show some mild inflammation of the gut as we discussed. [place] diet. Small, frequent sips of fluids to maintain hydration. Medical Decision Making 38-year-old male presents with single episode of bright red blood per rectum with a bowel movement this afternoon. He states this incurs infrequently over the years time. He recently has weeks of right-sided abdominal pain that is been fairly persistent. He arrives with no fever, normal blood pressure and pulse. His exam is reassuring but with mild right-sided abdominal tenderness. Rectal exam was negative for acute or occult blood. Diagnosis includes hemorrhoidal bleed, diverticulitis, mass. Patient had IV access established, referred for laboratory testing and CT images. Labs are reassuring without evidence of anemia or significant electrolyte abnormality. CT reveals mild inflammatory changes of the bowel consistent with a mild enteritis. No mass. Patient remains improved. No active bleeding. We will refer him to general surgery clinic for outpatient follow-up. He is stable for discharge home at this time Lab Data Lab results reviewed: Yes I reviewed the patient's lab results. Laboratory Results - last 24 hr 11/04/18 11/04/18 11/04/18 14:11 14:27 14:27 WBC RBC Hgb Hct MCV MCH MCHC RDW Plt Count MPV Immature Gran % Neutrophils % Lymphocytes % Monocytes % Eosinophils % Basophils % Absolute Neutrophils Absolute Lymphocytes Absolute Monocytes Absolute Eosinophils Absolute Basophils PT 10.2 INR 1.0 Sodium 138 Potassium 3.5 Chloride 98 Carbon Dioxide 32.5 H Anion Gap 7.5 BUN 17 Creatinine 0.93 Estimated GFR/1.73 m2 >= 60.00 Glucose 119 H Calcium 9.2 Magnesium 1.9 Total Bilirubin 0.3 AST 15 ALT 21 Alkaline Phosphatase 130 H Total Protein 7.7 Albumin 4.6 Patient ABO/Rh Cancelled 11/04/18 14:27 WBC 6.30 RBC 5.19 Hgb 15.6 Hct 44.4 MCV 85.5 MCH 30.1 MCHC 35.1 RDW 13.2 Plt Count 234 MPV 10.7 Immature Gran % 0.2 Neutrophils % 65.7 Lymphocytes % 23.3 Monocytes % 6.2 Eosinophils % 4.3 Basophils % 0.3 Absolute Neutrophils 4.14 Absolute Lymphocytes 1.47 Absolute Monocytes 0.39 Absolute Eosinophils 0.27 Absolute Basophils 0.02 PT INR Sodium Potassium Chloride Carbon Dioxide Anion Gap BUN Creatinine Estimated GFR/1.73 m2 Glucose Calcium Magnesium Total Bilirubin AST ALT Alkaline Phosphatase Total Protein Albumin Patient ABO/Rh HPI General Mode of arrival: ambulatory. Date/Time Provider Initiated Documentation: 11/04/18 14:03. Limitations to Documentation: no limitations. Information obtained by: patient. History of Present Illness 38 year old M presents to the emergency department with the chief complaint of Right lower quadrant pain and single episode of hematochezia, described as similar to prior episodes, Quality is described as dull and constant, and is localized to the abdomen and right. Patient reports no radiation. Patient started experiencing this week(s) and it has been intermittent. No relieving factors improve symptom(s), No exacerbating factors reported . Patient notes other (Bright red blood per rectum x1 ). Patient did receive the following treatments prior to arrival, none Related Data Home Medications Medication Instructions Recorded Confirmed melatonin 3 mg PO HS 09/24/16 11/04/18 methylphenidate HCl [Ritalin] 20 mg PO DAILY 09/24/16 11/04/18 risperidone [Risperdal] 3 mg PO BID 09/24/16 11/04/18 citalopram 20 mg PO DAILY 02/09/18 11/04/18 oxcarbazepine [Trileptal] 900 mcg PO BID 02/09/18 11/04/18 buspirone 15 mg PO BID 03/14/18 11/04/18 Allergies Allergy/AdvReac Type Severity Reaction Status Date / Time carbamazepine [From Tegretol] Allergy Unverified 11/04/18 14:13 guanfacine [From Tenex] Allergy Unverified 11/04/18 14:13 lithium Allergy Unverified 11/04/18 14:13 General Stated Complaint: GI Bleed ANTONETTE: 3 Review of Systems Review of Systems Frequent loose stool. Ongoing right-sided abdominal pain for weeks time, 8 systems reviewed and otherwise negative [facility] Social History Smoking/Tobacco Use Status: Current-Occasional Tobacco Type: smokeless tobacco Alcohol Intake: never Drug use: Never Do you feel safe at home: Yes Do you feel safe in your relationship?: Yes Exam Narrative Exam Narrative: GEN: awake, alert, oriented 3. Pleasant, well groomed, interactive. HEAD: Normocephalic, atraumatic ENT: Mucous membranes moist, oropharynx unremarkable, External ear exam unremarkable EYES: PERRL, EOMI NECK: Full ROM, no GABY, no menigismus CHEST/RESP: Nontender, clear to auscultation bilateral, no wheeze/rhonchi/rales CARDIOVASCULAR: RRR, no murmur, rub alexsander. 2+ Rad pulse bilateral ABDOMEN: Soft, nontender, no mass. +Bowel sounds. Rectal reveals normal tone, no masses, brown stool is guaiac negative. EXT: Full ROM, no edema, no rash Neuro: Grossly normal neurologic exam, conversant, interactive. Psych: Speech fluent, thoughts congruent, affect normal Course Vital Signs Temperature 36.6 C 11/04/18 14:06 Pulse 88 11/04/18 14:06 Respiratory Rate 16 11/04/18 14:06 Blood Pressure 132/81 11/04/18 14:06 Pulse Oximetry 99 11/04/18 14:06 Temperature 36.6 C 11/04/18 14:06 Temperature Source Skin 11/04/18 14:06 Pulse 88 11/04/18 14:06 Respiratory Rate 16 11/04/18 14:06 Respiratory Effort Non-Labored 11/04/18 14:11 Blood Pressure 132/81 11/04/18 14:06 Blood Pressure Position Sitting 11/04/18 14:06 Pulse Oximetry 99 11/04/18 14:06 Oxygen Delivery Method Room Air 11/04/18 14:06 Oxygen Flow Rate 0 11/04/18 14:06 Pain Level 0 11/04/18 14:06
--- NOTE | 2018-11-04 14:26 | ED.GENADUL_ITS ---
Discharge Plan Disposition Patient Disposition: HOME Condition: Improving Discharge Details Chief Complaint: GI Bleed Clinical Impression: Enteritis Primary Care Provider: Penny Perez ED Provider: Paresh Tolbert Home Meds and New Rx's Prescriptions: Continued methylphenidate HCl [Ritalin] 20 MG tablet 20 mg PO DAILY RF: 0 melatonin 3 MG tablet 3 mg PO HS RF: 0 risperidone [Risperdal] 3 MG tablet 3 mg PO BID RF: 0 oxcarbazepine [Trileptal] 600 MG tablet 900 mcg PO BID RF: 0 citalopram 10 MG tablet 20 mg PO DAILY RF: 0 buspirone 15 MG tablet 15 mg PO BID RF: 0 Discharge Instructions Additional Instructions: We will refer you to general surgery clinic as he should have a follow-up evaluation. Return if you have recurrent and persistent bleeding by rectum. Your blood counts were normal and your CAT scan did show some mild inflammation of the gut as we discussed. [place] diet. Small, frequent sips of fluids to maintain hydration. Medical Decision Making 38-year-old male presents with single episode of bright red blood per rectum with a bowel movement this afternoon. He states this incurs infrequently over t he years time. He recently has weeks of right-sided abdominal pain that is been fairly persistent. He arrives with no fever, normal blood pressure and pulse. His exam is reassuring but with mild right-sided abdominal tenderness. Rectal exam was negative for acute or occult blood. Diagnosis includes hemorrhoidal bleed, diverticulitis, mass. Patient had IV access established, referred for laboratory testing and CT images. Labs are reassuring without evidence of anemia or significant electrolyte abnormality. CT reveals mild inflammatory changes of the bowel consistent with a mild enteritis. No mass. Patient remains improved. No active bleeding. We will refer him to general surgery clinic for outpatient follow-up. He is stable for discharge home at this time Lab Data Lab results reviewed: Yes I reviewed the patient's lab results. Laboratory Results - last 24 hr 11/04/18 11/04/18 11/04/18 14:11 14:27 14:27 WBC RBC Hgb Hct MCV MCH MCHC RDW Plt Count MPV Immature Gran % Neutrophils % Lymphocytes % Monocytes % Eosinophils % Basophils % Absolute Neutrophils Absolute Lymphocytes Absolute Monocytes Absolute Eosinophils Absolute Basophils PT 10.2 INR 1.0 Sodium 138 Potassium 3.5 Chloride 98 Carbon Dioxide 32.5 H Anion Gap 7.5 BUN 17 Creatinine 0.93 Estimated GFR/1.73 m2 >= 60.00 Glucose 119 H Calcium 9.2 Magnesium 1.9 Total Bilirubin 0.3 AST 15 ALT 21 Alkaline Phosphatase 130 H Total Protein 7.7 Albumin 4.6 Patient ABO/Rh Cancelled 11/04/18 14:27 WBC 6.30 RBC 5.19 Hgb 15.6 Hct 44.4 MCV 85.5 MCH 30.1 MCHC 35.1 RDW 13.2 Plt Count 234 MPV 10.7 Immature Gran % 0.2 Neutrophils % 65.7 Lymphocytes % 23.3 Monocytes % 6.2 Eosinophils % 4.3 Basophils % 0.3 Absolute Neutrophils 4.14 Absolute Lymphocytes 1.47 Absolute Monocytes 0.39 Absolute Eosinophils 0.27 Absolute Basophils 0.02 PT INR Sodium Potassium Chloride Carbon Dioxide Anion Gap BUN Creatinine Estimated GFR/1.73 m2 Glucose Calcium Magnesium Total Bilirubin AST ALT Alkaline Phosphatase Total Protein Albumin Patient ABO/Rh HPI General Mode of arrival: ambulatory . Date/Time Provider Initiated Documentation: 11/04/18 14:03 . Limitations to Documentation: no limitations . Information obtained by: patient . History of Present Illness 38 year old M presents to the emergency department with the chief complaint of Right lower quadrant pain and single episode of hematochezia, described as similar to prior episodes, Quality is described as dull and constant, and is localized to the abdomen and right. Patient reports no radiation. Patient started experiencing this week(s) and it has been intermittent. No relieving factors improve symptom(s), No exacerbating factors reported . Patient notes other (Bright red blood per rectum x1 ). Patient did receive the following treatments prior to arrival, none Related Data Home Medications Medication Instructions Recorded Confirmed melatonin 3 mg PO HS 09/24/16 11/04/18 methylphenidate HCl [Ritalin] 20 mg PO DAILY 09/24/16 11/04/18 risperidone [Risperdal] 3 mg PO BID 09/24/16 11/04/18 citalopram 20 mg PO DAILY 02/09/18 11/04/18 oxcarbazepine [Trileptal] 900 mcg PO BID 02/09/18 11/04/18 buspirone 15 mg PO BID 03/14/18 11/04/18 Allergies Allergy/AdvReac Type Severity Reaction Status Date / Time carbamazepine [From Tegretol] Allergy Unverified 11/04/18 14:13 guanfacine [From Tenex] Allergy Unverified 11/04/18 14:13 lithium Allergy Unverified 11/04/18 14:13 General Stated Complaint: GI Bleed ANTONETTE: 3 Review of Systems Review of Systems Frequent loose stool. Ongoing right-sided abdominal pain for weeks time, 8 systems reviewed and otherwise negative [facility] Social History Smoking/Tobacco Use Status: Current-Occasional Tobacco Type: smokeless tobacco Alcohol Intake: never Drug use: Never Do you feel safe at home: Yes Do you feel safe in your relationship?: Yes Exam Narrative Exam Narrative: GEN: awake, alert, oriented 3. Pleasant, well groomed, interactive. HEAD: Normocephalic, atraumatic ENT: Mucous membranes moist, oropharynx unremarkable, External ear exam unremarkable EYES: PERRL, EOMI NECK: Full ROM, no GABY, no menigismus CHEST/RESP: Nontender, clear to auscultation bilateral, no wheeze/rhonchi/rales CARDIOVASCULAR: RRR, no murmur, rub alexsander. 2+ Rad pulse bilateral ABDOMEN: Soft, nontender, no mass. +Bowel sounds. Rectal reveals normal tone, no masses, brown stool is guaiac negative. EXT: Full ROM, no edema, no rash Neuro: Grossly normal neurologic exam, conversant, interactive. Psych: Speech fluent, thoughts congruent, affect normal Course Vital Signs Temperature 36.6 C 11/04/18 14:06 Pulse 88 11/04/18 14:06 Respiratory Rate 16 11/04/18 14:06 Blood Pressure 132/81 11/04/18 14:06 Pulse Oximetry 99 11/04/18 14:06 Temperature 36.6 C 11/04/18 14:06 Temperature Source Skin 11/04/18 14:06 Pulse 88 11/04/18 14:06 Respiratory Rate 16 11/04/18 14:06 Respiratory Effort Non-Labored 11/04/18 14:11 Blood Pressure 132/81 11/04/18 14:06 Blood Pressure Position Sitting 11/04/18 14:06 Pulse Oximetry 99 11/04/18 14:06 Oxygen Delivery Method Room Air 11/04/18 14:06 Oxygen Flow Rate 0 11/04/18 14:06 Pain Level 0 11/04/18 14:06
[2018-11-04 14:37] LABS: Abs Immature Grans 0.01 k/cumm (0.0-0.09); Absolute Basophil Count 0.02 k/cumm (0.0-0.2); Absolute Eosinophil Count 0.27 k/cumm (0.0-0.7); Absolute Lymphocyte Count 1.47 k/cumm (1.2-3.4); Absolute Monocyte Count 0.39 k/cumm (0.11-0.7); Absolute Neutrophil Count 4.14 k/cumm (1.2-6.7); Basophils % 0.3; Eosinophils % 4.3; HCT 44.4 % (40.0-50.0); HGB 15.6 g/dL (13.5-17.5); Immature Grans % 0.2; Lymphocytes % 23.3; Mean Corp. HGB Concentration 35.1 g/dL (32.0-36.0); Mean Corpuscular Hemoglobin 30.1 pg (27.0-33.0); Mean Corpuscular Volume 85.5 fL (80-95); Mean Platelet Volume 10.7 fL (8.0-11.0); Monocytes % 6.2; Neutrophils % 65.7; Platelet Count 234 x1000/uL (130-400); RBC 5.19 m/cumm (4.50-6.00); RBC Distribution Width 13.2 % (11.8-14.1)
[2018-11-04 14:47] LABS: Prothrombin Time 10.2 sec (9.3-11.0)
[2018-11-04 14:48] LABS: ALT 21 U/L (12-78); AST 15 U/L (15-37); Albumin 4.6 g/dL (3.4-5.0); Alkaline Phosphatase 130 U/L (46-116); Anion Gap 7.5 mmol/L (3-11); BUN 17 mg/dL (7-18); Bilirubin, Total 0.3 mg/dL (0.2-1.0); CO2 32.5 mmol/L (21.0-32.0); CREATININE 0.93 mg/dL (0.70-1.30); Calcium 9.2 mg/dL (8.5-10.1); Chloride 98 mmol/L (98-107); Glucose 119 mg/dL (70-100); Magnesium 1.9 mg/dL (1.8-2.4); Potassium 3.5 mmol/L (3.5-5.1); Sodium 138 mmol/L (136-145); Total Protein 7.7 g/dL (6.4-8.2)
[2018-11-04] MEDS: Omnipaque 350 MG/ML 100 ML BTL IV (14:53)
--- NOTE | 2018-11-05 08:37 | PDOC.ERCMPRO ---
Care Management Progress Note 11/05-Dr. Tolbert requested assistance with a general surgery f/u in 2-3 weeks for lower GI bleed. Referral faxed to [facility] this am.
== END 2018-11-04 15:29 | disposition home or self-care (01) ==
PROVIDERS: Emergency Provider Emergency Medicine; PCP Family Medicine
DX: K52.9 Noninfective gastroenteritis and colitis, unspecified (principal)
CPT/HCPCS: 36415; 80053; 86900; 86901; 99285; 74177; 83735; 85025; 85610; 99284; J3490

== ENCOUNTER 2019-01-19 15:33 | Emergency (ER) | payer MEDICARE, MEDICAID, SELFPAY ==
[2019-01-19 15:39] VITALS: BP 138/90; PULSE 82; RESP 16; TEMP 36.6; O2SAT 98
--- NOTE | 2019-01-19 16:20 | DI.RAD_ITS ---
SYMPTOM/DIAGNOSIS: COUGH, SMOKER, HEMOPTYSIS PA AND LATERAL CHEST: There is an old healed right rib fracture. Heart is not enlarged. The lungs are clear. No pleural effusion is seen. CONCLUSION: No evidence of acute process.
--- NOTE | 2019-01-19 16:36 | ED.GENADUL_ITS ---
Discharge Plan Disposition Patient Disposition: HOME Discharge Details Chief Complaint: RespSymp Clinical Impression: Hemoptysis Primary Care Provider: Penny Perez ED Provider: Eliceo Turcios Home Meds and New Rx's Prescriptions: Continued methylphenidate HCl [Ritalin] 20 MG tablet 20 mg PO DAILY RF: 0 melatonin 3 MG tablet 3 mg PO HS RF: 0 risperidone [Risperdal] 3 MG tablet 3 mg PO BID RF: 0 oxcarbazepine [Trileptal] 600 MG tablet 600 mcg PO BID RF: 0 citalopram 10 MG tablet 20 mg PO DAILY RF: 0 buspirone 15 MG tablet 15 mg PO BID RF: 0 Discharge Instructions Instructions: Cigarette Smoking and Your Health (GEN), Hemoptysis (ED) Additional Instructions: Please follow-up with your primary care physician and gastroenterology at [facility]. Please stop smoking and stop chewing tobacco. Return to the ER for any worsening or new concerning symptoms. Referrals: Penny Perez [Primary Care Provider] - Medical Decision Making 38-year-old male smoker here with hemoptysis, recent cough. Patient is saturating well in no respiratory distress. He does have some rhonchi on exam. Vitals normal. Chest x-ray reviewed and interpreted by me: No acute cardiopulmonary disease noted. Patient was seen 11/04/2018 for hematochezia, had a negative work-up in the emergency department and was referred to general surgery. He has followed up with gastroenterology at [facility]. I reviewed results of chest x-ray with the patient and his caregiver. I recommended follow-up with gastroenterology or general surgery for likely endoscopy. Patient has remained stable here in the emergency department. I encouraged him to return immediately for any worsening or new concerning symptoms. HPI General Mode of arrival: ambulatory . Date/Time Provider Initiated Documentation: 01/19/19 15:51 . Limitations to Documentation: no limitations . Information obtained by: patient . HPI Narrative: 38-year-old male presents with chief complaint of hemoptysis. Patient notes that he has been coughing recently and spit up some blood today. He has some mild discomfort in the back of his throat. Blood was small amount. No modifiers. No associated chest pain. No associated abdominal pain. No shortness of breath. Related Data Home Medications Medication Instructions Recorded Confirmed melatonin 3 mg PO HS 09/24/16 01/19/19 methylphenidate HCl [Ritalin] 20 mg PO DAILY 09/24/16 01/19/19 risperidone [Risperdal] 3 mg PO BID 09/24/16 01/19/19 citalopram 20 mg PO DAILY 02/09/18 01/19/19 oxcarbazepine [Trileptal] 600 mcg PO BID 02/09/18 01/19/19 buspirone 15 mg PO BID 03/14/18 01/19/19 Allergies Allergy/AdvReac Type Severity Reaction Status Date / Time carbamazepine [From Tegretol] Allergy Unverified 11/04/18 14:13 guanfacine [From Tenex] Allergy Unverified 11/04/18 14:13 lithium Allergy Unverified 11/04/18 14:13 General Stated Complaint: RespSymp ANTONETTE: 4 Review of Systems Review of Systems All systems reviewed & are unremarkable except as noted in HPI and below Cardiovascular Denies chest pain, Denies edema and Denies dyspnea Respiratory Reports as per HPI and Denies dyspnea PFSH Social History Smoking/Tobacco Use Status: Current every day Tobacco Type: cigarettes Alcohol Intake: never Drug use: Occasionally Substance use type: marijuana Do you feel safe at home: Yes Do you feel safe in your relationship?: Yes Exam Const General: cooperative and no acute distress HENMT Mouth: moist mucous membranes Throat: posterior oropharynx normal Eyes Conjunctivae: normal conjunctivae Sclera: normal sclerae Neck Neck: trachea midline and supple Resp Auscultation: clear to auscultation bilaterally, no rales, no rhonchi and no wheezes Cardio Jugular venous pressure: no JVD Rate: regular rate and not tachycardic Rhythm: regular rhythm GI Palpation: soft, not firm, no guarding, no masses, not rigid and nontender Skin General skin exam: no rashes or lesions noted Neuro General: alert, awake and tone normal Extrem General: no calf tenderness and no edema Course Vital Signs Temperature 36.6 C 01/19/19 15:39 Pulse 82 01/19/19 15:39 Respiratory Rate 16 01/19/19 15:39 Blood Pressure 138/90 01/19/19 15:39 Pulse Oximetry 98 01/19/19 15:39 Temperature 36.6 C 01/19/19 15:39 Temperature Source Skin 01/19/19 15:39 Pulse 82 01/19/19 15:39 Respiratory Rate 16 01/19/19 15:39 Respiratory Effort Non-Labored 01/19/19 15:44 Blood Pressure 138/90 01/19/19 15:39 Blood Pressure Position Sitting 01/19/19 15:39 Pulse Oximetry 98 01/19/19 15:39 Oxygen Delivery Method Room Air 01/19/19 15:39 Oxygen Flow Rate 0 01/19/19 15:39 Pain Level 0 01/19/19 15:39
--- NOTE | 2019-01-19 16:50 | DI.VRAD_ITS ---
EXAM: XR Chest, 2 Views EXAM DATE/TIME: 01/19/2019 3:59 PM CLINICAL HISTORY: 38 years old, male; Other: Cough, smoker, hemoptysis; Patient HX: Hemoptysis 24 hours, h/o hemoptysis for years TECHNIQUE: Imaging protocol: XR of the chest, 2 views. COMPARISON: CR CHEST 2 VIEWS PA,LAT 02/09/2018 12:29 PM FINDINGS: Lungs: Unremarkable. No consolidation. Pleural space: Unremarkable. No pleural effusion. No pneumothorax. Heart/Mediastinum: Unremarkable. No cardiomegaly. Bones/joints: There is an old healed right sixth posterior rib fracture. IMPRESSION: No acute findings. No significant change when compared to the prior study. Dictated and Authenticated by: Phan Lentz MD. Ordering:MILI Fenton MD
[2019-01-19 17:21] VITALS: BP 138/90; PULSE 82; RESP 16; TEMP 36.6; O2SAT 98
== END 2019-01-19 17:21 | disposition home or self-care (01) ==
PROVIDERS: Emergency Provider Student in an Organized Health Care Education/Training Program; PCP Family Medicine
DX: R04.2 Hemoptysis (principal); F17.210 Nicotine dependence, cigarettes, uncomplicated
CPT/HCPCS: 99283; 71046; 99282

== ENCOUNTER 2019-02-11 09:35 | Outpatient (REF) | payer MEDICARE, MEDICAID, SELFPAY ==
[2019-02-12 11:11] LABS: Campylobacter PCR SEE COMMENTS; Salmonella PCR SEE COMMENTS; Shiga Toxin PCR SEE COMMENTS; Shigella/Enteroinvasive Ecoli SEE COMMENTS
[2019-02-16 12:24] LABS: Helicobacter pylori Ag, Feces Negative (NEGAT)
[2019-02-17 23:29] LABS: Pancreatic Elastase, F >500 mcg/g
== END 2019-02-11 09:55 ==
LOC: LBN 09:35
PROVIDERS: PCP Family Medicine; Visit Provider Nurse Practitioner Family
DX: R19.7 Diarrhea, unspecified (principal); R10.30 Lower abdominal pain, unspecified
CPT/HCPCS: 87329; 87338; 87505; 82656; 87324